=== PATIENT | male | born 1990 | race Caucasian/White ===

== ENCOUNTER 2017-08-03 19:53 | Emergency (ER) | payer SELFPAY ==
[~2017-08-03] VITALS: Ht 195.6 cm; Wt 72.6 kg
[~2017-08-03 19:53] MED LIST: BACTROBAN2% TP; CIPRO 500MG TA500 MG PO; CIPRO500 MG PO; CLINDAMYCIN HC300 MG PO; FLEXERIL5 MG PO; IBUPROFEN600 MG PO; LORATADINE10 MG OR; MINOCYCLINE 10100 MG PO; NEOMYCIN OP; PAXIL20 MG PO; POLY OP; PREDNISONE 20MG20 MG PO; VIBRAMYCIN 100100 MG PO; VIBRAMYCIN HYC100 MG PO; ZANTAC 150150 MG PO
--- OUTSIDE RECORDS SUMMARY | 2017-08-03 20:00 | External Medical Summary Rpt ---
Author Author STEPHANI Koroma, STEPHANI Koroma Organization [employer] Address Unknown Phone Unavailable
--- OUTSIDE RECORDS SUMMARY | 2017-08-03 20:00 | External Medical Summary Rpt | CCD ---
Author Author , STEPHANI STYLES Address Unknown Phone [email or web address] Immunization Name Date Rout CVX Reac Dose Comm Prov Is Faci e tion ent ider Refu lity Give sed n Hep 12-1 8 999 Hist H149 No H149 B, 0-20 oric ped/ 02 al adol Info rmat ion - Sour ce Unsp ecif ied Hep 06-1 8 999 Hist H149 No H149 B, 0-20 oric ped/ 02 al adol Info rmat ion - Sour ce Unsp ecif ied MMR 04-1 3 999 Hist H149 No H149 0-20 oric 02 al Info rmat ion - Sour ce Unsp ecif ied Hep 04-1 8 999 Hist H149 No H149 B, 0-20 oric ped/ 02 al adol Info rmat ion - Sour ce Unsp ecif ied
--- OUTSIDE RECORDS SUMMARY | 2017-08-03 20:00 | External Medical Summary Rpt | CCD ---
Author Author [employer] Organization [employer] Address Unknown Phone Unavailable Purpose Continuity of Care Document - through 2016
--- OUTSIDE RECORDS SUMMARY | 2017-08-03 20:00 | External Medical Summary Rpt | CCD ---
Author Author , STEPHANI STYLES Address Unknown Phone [email or web address] Care Team Providers Care Photograph Inspector Name Role Phone Sugar Garcia MD, Unavailable Unavailable Sugar Garcia MD Purpose Continuity of Care Document - 06-08-2013 through 2016 Problems Code Diagnosis DOS Provider Status 305.1 305.1 08-06-2013 [place] TOBACCO USE [facility] 493.90 493.90 08-06-2013 [place] ASTHMA, [facility] UNSPECIFIED Hospital 528.2 528.2 ORAL 08-06-2013 [place] APHTHAE [facility] 682.7 682.7 08-06-2013 [place] CELLULITIS [facility] OF FOOT [facility] V14.0 V14.0 08-06-2013 [facility] IN ALLERGY [facility] V14.8 V14.8 08-06-2013 [facility] ALLERGY [facility] 916.5 916.5 06-08-2013 [place] INSECT BITE [facility] HIP/LEG-INF Allergies, Adverse Reactions, Alerts Type Drug Allergy Adverse Reaction to Substance Substance Reaction Severity PCN (penicillin) I-HIVES Mild SULFA (sulfonamide) I-HIVES Mild Cephalexin I-RASH Mild Diphenhydramine SOA Intermediate Codeine I-HIVES Mild Medications Na ND Rx Da Fi Fi Am Da Di Ph RX Ph St me C No te ll ll ou ys ag ar # ys at rm s nt no ma ic us Or Da si cy ia de te s n re d Le 00 11 0 No vo 90 -1 fl 46 6- Lo ox 25 20 ng ac 06 13 er in 1 Ac 50 ti 0M ve G Ta bl et LI 00 11 0 No DO 05 -1 CA 48 6- Lo IN 50 20 ng E 01 13 er 2% 6 Ac ti SC ve OU S 15 ML UD C CE 00 11 0 No FT 40 -1 RI 97 6- Lo AX 33 20 ng ON 30 13 er E 4 1 Ac GM ti ve AL SO 00 11 0 No DI 40 -1 UM 97 6- Lo 10 20 ng CH 16 13 er LO 6 RI Ac DE ti ve 0. 9% SO LN [place] 00 09 0 No ED 05 -1 NI 40 8- Lo SO 01 20 ng NE 82 13 er 0 20 Ac ti MG ve TA BL ET Le 51 09 0 No vo 07 -1 fl 90 8- Lo ox 03 20 ng ac 52 13 er in 0 Ac 50 ti 0M ve G Ta bl et Vital Signs 08-06-2013 23:41 Name Value Interpretat Reference Comment ion Range BP 72 mm[Hg] Diastolic BP Systolic 127 mm[Hg] Heart 90 /min Rate/Pulse O2% 97 % Respiratory 20 /min Rate 08-06-2013 22:34 Name Value Interpretat Reference Comment ion Range BP 83 mm[Hg] Diastolic BP Systolic 141 mm[Hg] Heart 101 /min Rate/Pulse O2% 97 % Respiratory 20 /min Rate Encounters Encounter Start End Date Code Location Performer Type Date Emergency ADE Garcia MD (ER) 3 21:59 3 23:43 [facility] Emergency ADE Garcia MD (ER) 3 02:00 3 02:00 [facility]
--- OUTSIDE RECORDS SUMMARY | 2017-08-03 20:00 | External Medical Summary Rpt | CCD ---
Author Author , STEPHANI STYLES Address Unknown Phone [email or web address] Immunization Name Date Rout CVX Reac Dose [...]
--- OUTSIDE RECORDS SUMMARY | 2017-08-03 20:00 | External Medical Summary Rpt | CCD ---
Author Author , STEPHANI STYLES Address Unknown Phone [email or web address] Care Team Providers Care Forming Press Operator Name Role Phone Sugar Garcia MD, Unavailable Unavailable Sugar Garcia MD Purpose Continuity of Care Document - 06-08-2013 through 2016 Problems Code Diagnosis DOS Provider Status 305.1 305.1 08-06-2013 [place] TOBACCO USE [facility] 493.90 493.90 08-06-2013 [place] ASTHMA, [facility] UNSPECIFIED Hospital 528.2 528.2 ORAL 08-06-2013 [place] APHTHAE [facility] 682.7 682.7 08-06-2013 [place] CELLULITIS [facility] OF FOOT [facility] V14.0 V14.0 08-06-2013 [facility] IN ALLERGY [facility] V14.8 V14.8 08-06-2013 [facility] ALLERGY [facility] 916.5 916.5 06-08-2013 [place] INSECT BITE [facility] HIP/LEG-INF Allergies, Adverse Reactions, Alerts Type Drug [...] DE ti ve 0. 9% SO LN [place] 00 09 0 No ED 05 -1 [...] Garcia MD (ER) 3 21:59 3 23:43 [facility] Emergency ADE Garcia MD (ER) 3 02:00 3 02:00 [facility]
--- NOTE | 2017-08-03 21:23 | Urgent Treatment Center Report ---
History of Present Issue Date/Time Seen by Provider 08/03/172121 Visit Reason Pt arrived:Walked Presenting Problem:RASH TO RIGHT ARM, SORETHROAT X2 DAYS Location if Accident: Onset of symptoms date/time:/ or onset unknown for:MEDICAL HX UNKNOWN Have you (or family members/close friends) recently traveled outside the [place]? N If Yes, where/when: Have you had exposure to infectious disease within the past month? TB? Other? Specify: Patient state that he noticed he was breaking out in rash on his right arm States that he is allergic to lots of different things so he is not sure what is causing him to break out States that he also has been having sore throat for several days that has continued to get worse and wanted to get checked to make sure that he didn't havce strep throat ALLERGIES Coded Allergies: Sulfa (Sulfonamide Antibiotics) (Severe, S-DIFF. BREATHING 04/08/16) cephalexin (Severe, S-DIFF. BREATHING 04/08/16) codeine (04/08/16) diphenhydramine (From BENADRYL) (04/08/16) penicillin G (S-DIFF. BREATHING 04/08/16) Home Medications Active Scripts Minocycline Hcl (Minocycline 100MG. Capsule) 100 MG PO BID #20 CAP Prov: 04/08/16 Clindamycin Hcl (Clindamycin 300MG) 300 MG PO TID #30 CAP Prov: 04/08/16 MUPIROCIN 2% (Bactroban Oint) 1 JANUSZ TP BID #1 TUBE Prov: 04/08/16 Reported Medications PAROXETINE (Paroxetine HCl) 40 MG PO DAILY History Medical History General CAD? No Angina: No LA: No Hypertension? No Hyperlipidemia? No CHF? No DVT? No PE? No COPD? No Asthma? Yes Anemia? No GERD? No Gastric ulcers? No GI Bleed? No Hernia? No Thyroid Problems? No Hypothyroidism? No CVA? No Seizures? No Diabetes? No Renal Insuffiency? No UTI? No Stones? No BPH? No GB Disease: No Nephritic Syndrome? No Asplenia? No Hepatitis? No Sickle Cell Disease? No Arthritis? No Migraines? No Cataracts? No Glaucoma? No MRSA? Yes HIV? No TB? No Anxiety? No Depression? No Cancer? No Immunization HX DT/Tetanus 1-4 YRS Surgical Hx Previous Surgery?Y WISDOM TEETH Social History Smoking Hx Smoker: Never Smoker Tobacco: No Alcohol Alcohol: Yes Review of Systems All Other Systems Reviewed and Negative ENT throat pain, throat swelling. Skin rash Physical Exam Vital Signs Vital Signs Date Time Temp Pulse Resp B/P Pulse O2 O2 Flow FiO2 Ox Delivery Rate 08/03 2040 98.4 80 18 124/48 98 General Appearance normal appearance, WD/WN, no apparent distress Ear, Nose, Throat tonsillar swelling, Throat red, irritated drainage noted Respiratory Status Yes: trachea midline, chest symmetrical, non tender chest. No: respiratory distress. Cardiovascular normal exam, regular rate/rhythm, no peripheral edema Neurologic alert, normal exam, oriented x 3 Skin rash, Raised red itchy urticaria like that seen with allergic reaction Medical Decision Making LABS/Meds/Orders Pt receiving controlled substance in ED? No Results/Orders Current Medication Orders Sig/[place] Start time Last Medication Dose Route Stop Time Status Admin Famotidine 0 .STK-MED ONE 08/03 2132 DC .ROUTE Methylprednisolone 0 .STK-MED ONE 08/03 2132 DC Sodium Succinate .ROUTE Famotidine 20 MG ONCE ONE 08/03 2130 DCr 08/03 PO 08/03 Methylprednisolone 125 MG ONCE ONE 08/03 2130 DC 08/03 Sodium Succinate IM 08/03 Orders Procedure Date/time Status [facility] STREP SCREEN 08/03 2133 Active Progress [facility] Progress Notes Comment Rash improved after medication patient being dc'd home Departure Departure Time of Disposition 2135 Disposition DC Home or Self Care(routine) Clinical Impression Primary Impression: Rash Secondary Impressions: Pharyngitis Qualifiers: Pharyngitis/tonsillitis etiology: unspecified etiology Qualified Code: J02.9 - Acute pharyngitis, unspecified Condition STABLE Patient Instructions DI for General Allergic Reactions, DI for Hives, Hives, Urticaria (Alternative Therapy) Additional Instructions * Monitor Temp. Tylenol and/or Ibuprofen as needed. ER if fever is no less than 101 despite alternating Tylenol and Ibuprofen * Encourage fluids, water, Gatorade, powerade, pedialyte if infant/toddler/or child * Warm salt water gargles for throat irritation *Warm fluids *Sore throat lozenges *Sleep elevated *humidifier or vaporizer Lots of rest Increase fluids, water, Gatorade, powerade *Your throat swab was sent to lab for culture. Those results area typically sent to your primary care physician. Be sure to follow up in 2-3 days if no improvement so they can review those results and treat if necessary If you dont have primary care I recommend you get one, but in the mean time you will have to return to a walk in clinic Follow up IMMEDIATELY for new or worsening of symptoms OR no noticeable improvement over the next 48-72 hours. 911 immediately for any life threatening symptoms such as chest pain or difficulty breathing Follow up with family doctor If rash return or worsens and you began having trouble breathing go straight to the ER Discharge Counseling Counseled pt/family regarding diagnosis, test results, home care, follow up needs Prescriptions Current Visit Scripts Azithromycin (Zithromycin (Z-RICCO) 250MG Tab) 250 MG PO DAILY #6 TAB TAKE TWO (2) TABLETS ON DAY 1, THEN ONE (1) TABLET DAY #2 THRU #5 Prednisone (Prednisone 20MG) 20 MG PO BID #10 TAB at 1646
[2017-08-03] MEDS ORDERED: PREDNISONE 20MG20 MG PO (21:38)
[2017-08-03] MEDS ORDERED: ZITHROMAX Z PA250 MG PO (21:38)
[2017-08-03 21:42] VITALS: BP 122/84
== END 2017-08-03 21:41 | disposition home or self-care (01) ==
LOC: UTC 19:53
DX: R21 Rash and other nonspecific skin eruption (principal); J02.9 Acute pharyngitis, unspecified; Z88.3 Allergy status to other anti-infective agents; Z88.5 Allergy status to narcotic agent; Z88.0 Allergy status to penicillin; Z88.8 Allergy status to other drugs, medicaments and biological substances; Z79.899 Other long term (current) drug therapy